=== PATIENT | male | born 1955 | race Caucasian/White ===

== ENCOUNTER 2020-03-20 14:24 | Observation (INO) ==
[2020-03-20] MEDS ORDERED: Isovue-370 500 ML BOTTLE IVP ONE ×2 (14:36→14:56)
[2020-03-20 15:09] LABS: Bilirubin,Urine Negative (Negative); Blood,Urine Negative (Negative); Clarity,Urine Clear (Clear); Color,Urine Colorless (Yellow); Glucose,Urine (UA) Normal (Normal); Ketones,Urine Negative (Negative); Leukocyte Esterase,Urine Negative (Negative); Nitrite,Urine Negative (Negative); PH,Urine 6.5 pH Units (5.0-8.0); Protein,Urine Negative (Neg-Trace); Specific Gravity,Urine 1.009 (1.010-1.025); Urobilinogen,Urine Normal (Normal)
[2020-03-20 15:10] LABS: Basophils % 0.6 %; Eosinophils # 0.3 K/mcL (0.0-0.6); Eosinophils % 3.8 %; Hematocrit 41.4 % (37.5-50.1); Hemoglobin 14.3 g/dL (12.9-16.9); Immature Granulocytes % 0.1 % (0-4); Lymphocytes # 2.1 K/mcL (0.6-4.6); Lymphocytes % 28.9 %; Mean Corpuscular HGB Conc 34.5 g/dL (31.6-35.5); Mean Corpuscular Hemoglobin 28.4 pg (28.0-33.3); Mean Corpuscular Volume 82.3 fL (83.0-100.0); Mean Platelet Volume 8.6 fL (9.4-12.4); Monocytes # 0.5 K/mcL (0.0-1.3); Monocytes % 7.2 %; Neutrophils # 4.3 K/mcL (1.6-8.9); Platelet Count 192 K/mcL (140-400); Red Blood Count 5.03 M/mcL (4.19-5.50); Red Cell Distribution Width 12.5 % (11.5-14.5); Segmented Neutrophils % 59.4 %; White Blood Count 7.2 K/mcL (4.3-11.1)
[2020-03-20 15:18] LABS: Prothrombin Time 11.2 Seconds (9.4-12.1)
[2020-03-20 15:21] LABS: Activated Partial Thrombo Time 37.2 Seconds (26.0-36.0)
[2020-03-20 17:04] LABS: Alanine Aminotransferase 27 Units/L (7-52); Albumin 4.5 g/dL (3.5-5.7); Albumin/Globulin Ratio 2.3 (1.1-2.2); Alkaline Phosphatase 53 Units/L (34-104); Aspartate Amino Transferase 18 Units/L (13-39); BUN/Creatinine Ratio 15 (6-26); Bilirubin,Direct 0.2 mg/dL (0.0-0.2); Bilirubin,Indirect 0.4 mg/dL (0.0-1.0); Bilirubin,Total 0.6 mg/dL (0.3-1.0); Blood Urea Nitrogen 15 mg/dL (8-23); Calcium 9.6 mg/dL (8.6-10.3); Carbon Dioxide 26 mEq/L (23-29); Chloride 102 mEq/L (98-107); Glucose 108 mg/dL (70-105); Lipase 33 Units/L (11-82); Osmolality,Calculated 281 (280-300); Potassium 4.1 mEq/L (3.5-5.1); Sodium 135 mEq/L (136-145); Total Protein 6.5 g/dL (6.4-8.9); eGFR For African Americans > 60 (> 60); eGFR For Non-African Americans > 60 (> 60)
[2020-03-20 17:05] LABS: Troponin I < 0.03 ng/mL (< 0.04)
[2020-03-20] MEDS ORDERED: Naloxone 0.4 MG/ML INJ IVP PRN (17:53)
[2020-03-20] MEDS ORDERED: Perflutren Lipid Microsphere 1.3 ML in 0.9 % Sodium Chloride 8.7 ML IVP PRN (17:57)
[2020-03-20] MEDS ORDERED: *HR* Dextrose 50 % in Water (Vial) 50 ML VIAL IVP PRN (17:58)
[2020-03-20] MEDS ORDERED: Dextrose Gel 15 GM/37.5 ML TUBE PO PRN ×2 (17:58)
[2020-03-20] MEDS ORDERED: D5% in Water 1,000 ML IVC PRN (17:58)
[2020-03-20 22:47] LABS: Estimated Average Glucose 148 mg/dl; Hemoglobin A1C 6.8 %
[2020-03-20 22:55] LABS: Chol/HDL Ratio 2.6 (0-4.9)
[2020-03-21] MEDS ORDERED: *HR* Enoxaparin 40 MG/0.4 ML SYRINGE SQ SCH (06:00)
[2020-03-21] MEDS ORDERED: Regadenoson 0.4 MG/5 ML SYRINGE IVP ONE (06:06)
[2020-03-21] MEDS ORDERED: Insulin LISPRO 300 UNITS/3 ML VIAL SQ SCH (07:30)
[2020-03-21] MEDS ORDERED: Aspirin Enteric Coated 81 MG Tablet PO SCH (09:00)
[2020-03-21] MEDS ORDERED: OMEGA PO SCH (09:00)
[2020-03-21] MEDS ORDERED: Metoprolol XL (24 HR) Succ 25 MG TAB.ER.24H PO SCH (09:00)
[2020-03-21 11:07] VITALS: BP 132/87
== END 2020-03-21 12:40 | disposition home or self-care (01) ==
LOC: EMEROOARM 14:24 → 3BNU 14:24 → SUATTDRO 17:40 → 3BNU 18:38
PROVIDERS: ADMIT Family Medicine; ATTEND Internal Medicine